=== PATIENT | female | born 1960 | race Caucasian/White ===

== ENCOUNTER 2017-03-09 14:31 | Emergency (ER) | payer BC ==
[~2017-03-09 14:31] MED LIST: COMPAZINE10 M PO; EFFEXOR XR75 MG; FLAGYL500 MG PO; LEVAQUIN750 MG PO; NORCO 5/325 TAB1 TAB PO
[2017-03-09] MEDS ORDERED: PLAQUENIL200 M1 PO (14:41)
[2017-03-09] MEDS ORDERED: MOBIC15 M2 PO (14:41)
[2017-03-09] MEDS ORDERED: TURMERIC500 M2 PO (14:42)
[2017-03-09] MEDS ORDERED: VITAMIN D31000 UNI3 PO (14:42)
[2017-03-09] MEDS ORDERED: CO Q-10100 M2 PO (14:42)
[2017-03-09 15:10] LABS: BASO % 1.1 % (0-2); BASO ABSOLUTE COUNT 0.1 tho/cmm (0.0-0.2); EOSINOPHIL ABSOLUTE COUNT 0.3 tho/cmm (0.0-0.7); HCT-HEMATOCRIT 37.8 % (34.0-49.0); HGB-HEMOGLOBIN 12.4 gm/dl (12.0-15.5); IMMATURE GRANULOCYTES ABSOLUTE 0.02 tho/cmm (0-0.03); IMMATURE GRANULOCYTES PERCENT 0.3 % (0-0.3); LYMPH % 32.6 % (20-45); LYMPH ABSOLUTE COUNT 2.4 tho/cmm (0.8-4.5); MCH (MEAN CORPUSCULAR HGB) 27.5 pg (28.0-32.0); MCHC MEAN CORPUSCULAR HGB CONC 32.8 % (32.0-36.0); MCV (MEAN CELL VOLUME) 83.8 fl (82.0-96.0); MEAN PLATELET VOLUME 9.3 cmc (9.4-12.4); MONO % 6.7 % (0-12); MONOCYTE ABSOLUTE COUNT 0.5 tho/cmm (0.0-1.2); NEUTROPHILS % 55.3 % (40-80); PLATELET COUNT 262 tho/cmm (150-450); RED BLOOD COUNT 4.51 mil/cmm (4.00-5.20); RED CELL DISTRIBUTION WIDTH 14.5 % (12.4-16.4); WHITE BLOOD COUNT 7.3 tho/cmm (4.0-10.0)
[2017-03-09 15:20] LABS: ANION GAP 10 mmol/L (0-20); BLOOD UREA NITROGEN 21 mg/dl (6-24); CALCIUM 8.9 mg/dl (8.5-10.5); CARBON DIOXIDE-VENOUS 30 mmol/L (22-32); CHLORIDE 105 mmol/l (96-110); CREATININE 0.74 mg/dl (0.50-1.10); GLUCOSE 93 mg/dL (70-110); POTASSIUM 4.5 mmol/L (3.7-5.1); SODIUM 140 mmol/L (135-145); eGFR VALUE FOR BLACK >90 mL/Min
[2017-03-09] MEDS ORDERED: GENTAK5 M1 OP (15:39)
[2017-03-09] MEDS ORDERED: BACTRIM DS TAB1 EAC2 PO (15:41)
[2017-03-09] MEDS ORDERED: TOBRADEX EYE DRO5 M1 OP (15:42)
== END 2017-03-09 17:05 ==
LOC: EDMED 14:31
PROVIDERS: Emergency Medicine
DX: R42 Dizziness and giddiness (principal); M19.90 Unspecified osteoarthritis, unspecified site; Z88.1 Allergy status to other antibiotic agents; Z90.710 Acquired absence of both cervix and uterus; Z90.89 Acquired absence of other organs; F17.210 Nicotine dependence, cigarettes, uncomplicated
CPT/HCPCS: G8978-GP-CI; G8979-GP-CI; G8980-GP-CI